=== PATIENT | male | born 1965 | race Caucasian/White ===

== ENCOUNTER 2021-07-27 19:21 | Inpatient (IN) | payer MEDICAID ==
[~2021-07-27] VITALS: Ht 170.2 cm; Wt 49.9 kg
[2021-07-27] MEDS ORDERED: ACETAMINOPHEN 325MG TABLET PO ONE (20:00)
[2021-07-27] MEDS ORDERED: LEVOFLOXACIN 750MG PREMIX 150 ML IV ONE (20:00)
[2021-07-27] MEDS ORDERED: PIPERACILLIN/TAZOBACTAM 3.375GM/50ML PREMIX IV ONE (20:00)
[2021-07-27] MEDS ORDERED: SODIUM CHLORIDE 0.9% 1000ML BAG (SEPSIS BOLUS) IV ONE (20:00)
[2021-07-27] MEDS ORDERED: PIPERACILLIN/TAZ 3.375G PREMIX 50 ML IV NR (20:15)
[2021-07-27 20:36] LABS: BG BASE EXCESS 2.4 mmol/L (-2.0-2.0); BG CARBOXYHEMOGLOBIN 0.4 % (0.5-1.5); BG FRACTION INSPIRED OXYGEN 28; BG HCO3 ACT 23.1 mmol/L (22.0-26.0); BG METHEMOGLOBIN 0.3 % (0.0-1.5); BG OXYHEMOGLOBIN 96.3 % (94.0-97.0); BG PCO2 24.3 mmHg (35.0-45.0); BG PH 7.596 (7.350-7.450); BG PO2 88.4 mmHg (75.0-100.0); BG SAMPLE SITE RIGHT RADIAL; BG TOTAL HEMOGLOBIN 10.6 g/dL (12.0-18.0); BG VENT MODE NASAL CANNULA
[2021-07-27 20:39] LABS: CHLORIDE 101 mEq/L (98-107)
[2021-07-27 20:40] LABS: HEMATOCRIT. 29.3 % (42.0-52.0); MEAN CORPUSCULAR HEMOGLOBIN 37.6 pg (28.0-32.0); MEAN CORPUSCULAR VOLUME 110.1 fL (80.0-94.0); MEAN PLATELET VOLUME 8.5 fl (7.4-10.4); PLATELET 175 x1000/uL (130-400); RED BLOOD CELL COUNT 2.67 mill/uL (4.7-6.1); RED CELL DISTRIBUTION WIDTH 15.2 % (11.6-14.6)
[2021-07-27 20:43] LABS: ETHANOL BLOOD < 10 mg/dL
[2021-07-27 20:51] LABS: PLATELET ESTIMATE NORMAL
[2021-07-27] MEDS ORDERED: ACETAMINOPHEN 650MG SUPP PR ONE (22:45)
[2021-07-27] MEDS ORDERED: LACTULOSE 20G/30ML UDC PO ONE (22:45)
[2021-07-27] MEDS ORDERED: LORAZEPAM 2MG/ML CPJ IV ONE (22:45)
[2021-07-28] VITALS (9 sets, daily range): BP systolic 109–145; BP diastolic 49–94
[2021-07-28] MEDS ORDERED: LACTULOSE 20G/30ML UDC PO SCH (01:15)
[2021-07-28] MEDS ORDERED: POTASSIUM CHLORIDE 20MEQ TABLET SR PO NR (09:00)
[2021-07-28] MEDS ORDERED: ONDANSETRON HCL 4MG/2ML INJ IV PRN (09:00)
[2021-07-28] MEDS ORDERED: ACETAMINOPHEN 325MG TABLET PO PRN (09:00)
[2021-07-28 10:58] LABS: HEMATOCRIT. 24.8 % (42.0-52.0); HEMOGLOBIN. 8.5 g/dL (14.0-18.0); MEAN CORPUSCULAR HEMOGLOBIN 38.7 pg (28.0-32.0); MEAN CORPUSCULAR VOLUME 112.6 fL (80.0-94.0); RED BLOOD CELL COUNT 2.21 mill/uL (4.7-6.1); RED CELL DISTRIBUTION WIDTH 15.2 % (11.6-14.6)
[2021-07-28 11:05] LABS: INR 1.8; PARTIAL THROMBOPLASTIN TIME 43.9 sec (23.4-31.0); PROTHROMBIN TIME 18.1 sec (9.6-11.0)
[2021-07-28 11:09] LABS: CHLORIDE 103 mEq/L (98-107)
[2021-07-28] MEDS ORDERED: SODIUM BICARBONATE 4% (2.4MEQ) 5ML VIAL IV ONE (11:28)
[2021-07-28] MEDS ORDERED: LIDOCAINE HCL/EPINEPHRINE 1%-EPI 1:100,000 30 ML VIAL INFIL ONE (11:28)
[2021-07-28] MEDS ORDERED: LORAZEPAM 2MG/ML CPJ IV PRN (11:30)
[2021-07-28] MEDS ORDERED: LIDOCAINE HCL 1% 10 MG/ML 10ML VIAL ONE (11:31)
[2021-07-28 12:29] LABS: PLATELET ESTIMATE DECREASED
[2021-07-28] MEDS ORDERED: POTASSIUM CHLORIDE 20MEQ/PACKET PO NR ×2 (13:30→17:00)
[2021-07-28] MEDS: PIPERACILLIN/TAZOBACTAM 3.375 G in DEXTROSE 5% WATER 50 ML IV SCH ×3 (13:45→21:59)
[2021-07-28] MEDS: LACTULOSE 20G/30ML UDC PO SCH ×2 (13:45→21:59)
[2021-07-28 15:24] LABS: CLARITY URINE CLEAR (CLEAR); COLOR URINE DARK YELLOW (YELLOW); KETONES URINE NEGATIVE (NEGATIVE); LEUKOCYTE ESTERASE URINE NEGATIVE (NEGATIVE); NITRITE URINE NEGATIVE (NEGATIVE); OCCULT BLOOD URINE NEGATIVE (NEGATIVE); PROTEIN URINE NEGATIVE (NEGATIVE)
[2021-07-28 15:38] LABS: *AMPHETAMINES SCREEN URINE NEGATIVE (NEGATIVE); *BARBITURATES SCREEN URINE NEGATIVE (NEGATIVE); *BENZODIAZEPINES SCREEN URINE NEGATIVE (NEGATIVE)
[2021-07-28 15:39] LABS: *COCAINE SCREEN URINE NEGATIVE (NEGATIVE); CANNABINOID URINE SCREEN NEGATIVE (NEGATIVE); METHADONE URINE SCREEN NEGATIVE (NEGATIVE); OPIATES URINE SCREEN NEGATIVE (NEGATIVE); PHENCYCLIDINE URINE SCREEN NEGATIVE (NEGATIVE)
[2021-07-29] VITALS (12 sets, daily range): BP systolic 111–150; BP diastolic 65–97
[2021-07-29] MEDS: LACTULOSE 20G/30ML UDC PO SCH ×3 (06:25→22:17)
[2021-07-29] MEDS: PIPERACILLIN/TAZOBACTAM 3.375 G in DEXTROSE 5% WATER 50 ML IV SCH ×3 (06:26→22:18)
[2021-07-29 09:42] LABS: HEMATOCRIT. 27.6 % (42.0-52.0); HEMOGLOBIN. 9.2 g/dL (14.0-18.0); MEAN CORPUSCULAR HEMOGLOBIN 37.7 pg (28.0-32.0); MEAN CORPUSCULAR VOLUME 112.6 fL (80.0-94.0); MEAN PLATELET VOLUME 8.1 fl (7.4-10.4); PLATELET 93 x1000/uL (130-400); RED BLOOD CELL COUNT 2.45 mill/uL (4.7-6.1); RED CELL DISTRIBUTION WIDTH 14.9 % (11.6-14.6)
[2021-07-29 09:49] LABS: CHLORIDE 108 mEq/L (98-107)
[2021-07-29] MEDS ORDERED: POTASSIUM CHLORIDE 20MEQ/PACKET PO NR (13:45)
[2021-07-29] MEDS ORDERED: POTASSIUM CHLORIDE INJ 40 MEQ in DEXT 5% WATER 250 ML IV ONE (13:45)
[2021-07-29] MEDS: KCL 20MEQ/100ML X 2 FOR TOTAL KCL 40MEQ/200ML IV SCH ×2 (15:38→18:23)
[2021-07-29 22:13] LABS: PLATELET ESTIMATE DECREASED
[2021-07-30] VITALS (12 sets, daily range): BP systolic 119–153; BP diastolic 77–95
[2021-07-30 06:12] LABS: BASOPHILS % 0.3 % (0.0-2.0); EOSINOPHILS % 0.7 % (0.0-5.0); HEMATOCRIT. 28.4 % (42.0-52.0); HEMOGLOBIN. 9.8 g/dL (14.0-18.0); MEAN CORPUSCULAR HEMOGLOBIN 38.2 pg (28.0-32.0); MEAN CORPUSCULAR VOLUME 110.8 fL (80.0-94.0); MONOCYTES % 14.2 % (2.0-8.0); NEUTROPHILS % 65.8 % (40.0-76.0); RED BLOOD CELL COUNT 2.57 mill/uL (4.7-6.1); RED CELL DISTRIBUTION WIDTH 14.5 % (11.6-14.6)
[2021-07-30 06:20] LABS: CHLORIDE 111 mEq/L (98-107)
[2021-07-30] MEDS: PIPERACILLIN/TAZOBACTAM 3.375 G in DEXTROSE 5% WATER 50 ML IV SCH ×3 (06:39→21:32)
[2021-07-30] MEDS: LACTULOSE 20G/30ML UDC PO SCH ×3 (06:39→21:32)
[2021-07-31] VITALS (10 sets, daily range): BP systolic 139–159; BP diastolic 79–96
[2021-07-31] MEDS: LACTULOSE 20G/30ML UDC PO SCH ×3 (05:31→22:01)
[2021-07-31] MEDS: PIPERACILLIN/TAZOBACTAM 3.375 G in DEXTROSE 5% WATER 50 ML IV SCH ×3 (05:31→22:02)
[2021-07-31] MEDS ORDERED: SPIRONOLACTONE 25MG TABLET PO NR (09:30)
[2021-07-31] MEDS: FUROSEMIDE 40MG/4ML VIAL IVP SCH (10:06)
[2021-07-31] MEDS: CHLORDIAZEPOXIDE 25MG CAPSULE PO SCH ×2 (14:15→22:01)
[2021-08-01] VITALS (10 sets, daily range): BP systolic 117–151; BP diastolic 74–100
[2021-08-01] MEDS: PIPERACILLIN/TAZOBACTAM 3.375 G in DEXTROSE 5% WATER 50 ML IV SCH ×3 (05:02→22:28)
[2021-08-01] MEDS: LACTULOSE 20G/30ML UDC PO SCH ×3 (05:53→22:29)
[2021-08-01] MEDS: CHLORDIAZEPOXIDE 25MG CAPSULE PO SCH ×3 (05:53→22:29)
[2021-08-01 08:11] LABS: CHLORIDE 107 mEq/L (98-107); INR 1.5; PROTHROMBIN TIME 15.8 sec (9.6-11.0)
[2021-08-01 08:13] LABS: HEMATOCRIT. 28.3 % (42.0-52.0); HEMOGLOBIN. 9.6 g/dL (14.0-18.0); MEAN CORPUSCULAR HEMOGLOBIN 38.3 pg (28.0-32.0); MEAN CORPUSCULAR VOLUME 113.4 fL (80.0-94.0); RED BLOOD CELL COUNT 2.49 mill/uL (4.7-6.1); RED CELL DISTRIBUTION WIDTH 14.7 % (11.6-14.6)
[2021-08-01] MEDS: FUROSEMIDE 40MG/4ML VIAL IVP SCH (08:24)
[2021-08-01] MEDS: SPIRONOLACTONE 50MG TABLET PO SCH (09:00)
[2021-08-01 11:00] LABS: PLATELET ESTIMATE DECREASED
[2021-08-01] MEDS ORDERED: SIMETHICONE/SOD BICARB/CIT AC 1 EACH GRAN.EF.PK ONE (12:43)
[2021-08-01] MEDS ORDERED: SODIUM BICARBONATE 4% (2.4MEQ) 5ML VIAL IV ONE (12:44)
[2021-08-01] MEDS ORDERED: LIDOCAINE HCL 1% 10 MG/ML 10ML VIAL ONE (12:44)
[2021-08-01] MEDS: POTASSIUM CHLORIDE 20MEQ TABLET SR PO SCH (14:04)
[2021-08-02] VITALS: BP 127/82
[2021-08-02 04:00] VITALS: BP 118/71
[2021-08-02] MEDS: CHLORDIAZEPOXIDE 25MG CAPSULE PO SCH ×3 (05:28→22:34)
[2021-08-02] MEDS: LACTULOSE 20G/30ML UDC PO SCH ×3 (05:28→22:34)
[2021-08-02] MEDS: PIPERACILLIN/TAZOBACTAM 3.375 G in DEXTROSE 5% WATER 50 ML IV SCH (05:28)
[2021-08-02 07:56] VITALS: BP 118/99
[2021-08-02] MEDS: FUROSEMIDE 40MG/4ML VIAL IVP SCH (08:05)
[2021-08-02] MEDS: SPIRONOLACTONE 50MG TABLET PO SCH (08:06)
[2021-08-02] MEDS: POTASSIUM CHLORIDE 20MEQ TABLET SR PO SCH (08:06)
[2021-08-02 12:00] VITALS: BP 117/72
[2021-08-02 16:00] VITALS: BP 116/76
[2021-08-02 20:00] VITALS: BP 130/84
[2021-08-03] VITALS: BP 119/73
[2021-08-03 04:00] VITALS: BP 120/70
[2021-08-03] MEDS: CHLORDIAZEPOXIDE 25MG CAPSULE PO SCH ×3 (05:53→22:12)
[2021-08-03] MEDS: LACTULOSE 20G/30ML UDC PO SCH ×3 (05:53→22:12)
[2021-08-03 08:00] VITALS: BP 127/77
[2021-08-03] MEDS: POTASSIUM CHLORIDE 20MEQ TABLET SR PO SCH (08:59)
[2021-08-03] MEDS: FUROSEMIDE 40MG/4ML VIAL IVP SCH (08:59)
[2021-08-03] MEDS: SPIRONOLACTONE 50MG TABLET PO SCH (08:59)
[2021-08-03 12:00] VITALS: BP 120/67
[2021-08-03 16:00] VITALS: BP 116/71
[2021-08-03 20:00] VITALS: BP 132/73
[2021-08-04] VITALS: BP 117/73
[2021-08-04 04:00] VITALS: BP 128/73
[2021-08-04] MEDS: LACTULOSE 20G/30ML UDC PO SCH ×3 (06:17→22:00)
[2021-08-04] MEDS: CHLORDIAZEPOXIDE 25MG CAPSULE PO SCH ×3 (06:17→22:00)
[2021-08-04 08:00] VITALS: BP 114/71
[2021-08-04] MEDS: FUROSEMIDE 40MG/4ML VIAL IVP SCH (08:46)
[2021-08-04] MEDS: POTASSIUM CHLORIDE 20MEQ TABLET SR PO SCH (08:47)
[2021-08-04] MEDS: SPIRONOLACTONE 50MG TABLET PO SCH (08:47)
[2021-08-04 12:00] VITALS: BP 115/66
[2021-08-04 16:00] VITALS: BP 129/76
[2021-08-04 20:00] VITALS: BP 112/78
[2021-08-05] VITALS: BP 123/78
[2021-08-05 04:00] VITALS: BP 125/82
[2021-08-05] MEDS: LACTULOSE 20G/30ML UDC PO SCH ×3 (06:06→22:35)
[2021-08-05] MEDS: CHLORDIAZEPOXIDE 25MG CAPSULE PO SCH ×2 (06:06→14:10)
[2021-08-05 08:00] VITALS: BP 118/79
[2021-08-05] MEDS: FUROSEMIDE 40MG/4ML VIAL IVP SCH (08:58)
[2021-08-05] MEDS: SPIRONOLACTONE 50MG TABLET PO SCH (08:58)
[2021-08-05] MEDS: POTASSIUM CHLORIDE 20MEQ TABLET SR PO SCH (08:58)
[2021-08-05 12:00] VITALS: BP 103/62
[2021-08-05 16:00] VITALS: BP 115/68
[2021-08-05 20:00] VITALS: BP 127/78
[2021-08-06] VITALS: BP 133/69
[2021-08-06 04:00] VITALS: BP 127/62
[2021-08-06] MEDS: LACTULOSE 20G/30ML UDC PO SCH ×3 (07:13→22:21)
[2021-08-06 08:00] VITALS: BP 119/72
[2021-08-06] MEDS: POTASSIUM CHLORIDE 20MEQ TABLET SR PO SCH (09:03)
[2021-08-06] MEDS: SPIRONOLACTONE 50MG TABLET PO SCH (09:04)
[2021-08-06] MEDS: FUROSEMIDE 40MG/4ML VIAL IVP SCH (09:04)
[2021-08-06 12:00] VITALS: BP 113/73
[2021-08-06] MEDS: FUROSEMIDE 40MG TABLET PO SCH (12:37)
[2021-08-06 16:04] VITALS: BP 97/60
[2021-08-06 20:00] VITALS: BP 95/55
[2021-08-06] MEDS: PANTOPRAZOLE SODIUM 40 MG/VIAL IV SCH (22:21)
[2021-08-07] VITALS: BP 101/70
[2021-08-07 04:00] VITALS: BP 123/72
[2021-08-07] MEDS: LACTULOSE 20G/30ML UDC PO SCH ×2 (06:00→13:33)
[2021-08-07 08:00] VITALS: BP 100/59
[2021-08-07] MEDS: PANTOPRAZOLE SODIUM 40 MG/VIAL IV SCH ×2 (09:34→21:00)
[2021-08-07] MEDS: SPIRONOLACTONE 50MG TABLET PO SCH (09:41)
[2021-08-07] MEDS: POTASSIUM CHLORIDE 20MEQ TABLET SR PO SCH (09:42)
[2021-08-07] MEDS: FUROSEMIDE 40MG TABLET PO SCH (09:42)
[2021-08-07 11:50] LABS: HEMATOCRIT. 26.1 % (42.0-52.0); HEMOGLOBIN. 8.5 g/dL (14.0-18.0); MEAN CORPUSCULAR HEMOGLOBIN 39.2 pg (28.0-32.0); MEAN CORPUSCULAR VOLUME 120.6 fL (80.0-94.0); MEAN PLATELET VOLUME 9.1 fl (7.4-10.4); PLATELET 80 x1000/uL (130-400); RED BLOOD CELL COUNT 2.16 mill/uL (4.7-6.1); RED CELL DISTRIBUTION WIDTH 17.4 % (11.6-14.6)
[2021-08-07] MEDS ORDERED: BARIUM SULFATE 176 GM SUSP.RECON ONE (11:51)
[2021-08-07] MEDS ORDERED: BARIUM SULFATE(VOLUMEN) 450 ML ORAL.SUSP ONE (11:52)
[2021-08-07 11:55] LABS: INR 1.7; PROTHROMBIN TIME 17.1 sec (9.6-11.0)
[2021-08-07 12:00] VITALS: BP 90/52
[2021-08-07] MEDS ORDERED: SODIUM CHLORIDE 0.9% 1,000 ML IV SCH (12:30)
[2021-08-07 12:34] LABS: VITAMIN B12 SERUM > 2000.0 pg/mL (211-911)
[2021-08-07 12:47] LABS: FERRITIN 1411 ng/mL (22-322)
[2021-08-07 16:00] VITALS: BP 90/58
[2021-08-07 19:50] LABS: PLATELET ESTIMATE DECREASED
[2021-08-07 20:00] VITALS: BP 92/53
[2021-08-08] VITALS: BP 99/62
[2021-08-08 04:00] VITALS: BP 107/64
[2021-08-08] MEDS: PANTOPRAZOLE SODIUM 40 MG/VIAL IV SCH (09:00)
[2021-08-08] MEDS: LACTULOSE 20G/30ML UDC PO SCH (09:00)
[2021-08-08] MEDS: SPIRONOLACTONE 50MG TABLET PO SCH (09:00)
[2021-08-08] MEDS: POTASSIUM CHLORIDE 20MEQ TABLET SR PO SCH (09:00)
[2021-08-08 12:00] VITALS: BP 117/66
[2021-08-08] MEDS: DEXTROSE 5% WATER 1,000 ML IV SCH (15:30)
[2021-08-08 20:00] VITALS: BP 111/54
[2021-08-09] VITALS: BP 119/61
[2021-08-09 04:00] VITALS: BP 95/51
[2021-08-09 08:00] VITALS: BP 87/52
[2021-08-09] MEDS: POTASSIUM CHLORIDE 20MEQ TABLET SR PO SCH (09:00)
[2021-08-09] MEDS: SPIRONOLACTONE 50MG TABLET PO SCH (09:00)
[2021-08-09] MEDS: LACTULOSE 20G/30ML UDC PO SCH (09:00)
[2021-08-09 10:28] LABS: INR 1.8; PROTHROMBIN TIME 18.2 sec (9.6-11.0)
[2021-08-09] MEDS: DEXTROSE 5% WATER 1,000 ML IV SCH (11:30)
[2021-08-09] MEDS: PANTOPRAZOLE SODIUM 40 MG/VIAL IV SCH (11:31)
[2021-08-09 12:00] VITALS: BP 91/52
[2021-08-09 13:13] LABS: BASOPHILS % 0.1 % (0.0-2.0); HEMATOCRIT. 25.9 % (42.0-52.0); HEMOGLOBIN. 8.3 g/dL (14.0-18.0); LYMPHOCYTES % 7.7 % (20.0-50.0); MEAN CORPUSCULAR HEMOGLOBIN 38.3 pg (28.0-32.0); MEAN CORPUSCULAR VOLUME 119.4 fL (80.0-94.0); MEAN PLATELET VOLUME 9.6 fl (7.4-10.4); MONOCYTES % 4.4 % (2.0-8.0); NEUTROPHILS % 87.8 % (40.0-76.0); PLATELET 51 x1000/uL (130-400); RED BLOOD CELL COUNT 2.17 mill/uL (4.7-6.1); RED CELL DISTRIBUTION WIDTH 18.5 % (11.6-14.6)
[2021-08-09 16:00] VITALS: BP 88/52
[2021-08-09] MEDS: RISPERIDONE 0.5MG TABLET PO SCH (19:04)
[2021-08-09 20:00] VITALS: BP 100/62
[2021-08-09] MEDS: RIFAXIMIN 550 MG TABLET PO SCH (22:58)
[2021-08-10] VITALS (11 sets, daily range): BP systolic 93–130; BP diastolic 57–70
[2021-08-10] MEDS: DEXTROSE 5% WATER 1,000 ML IV SCH ×3 (01:43→20:33)
[2021-08-10] MEDS: SPIRONOLACTONE 50MG TABLET PO SCH (09:00)
[2021-08-10 09:14] LABS: BASOPHILS % 0.3 % (0.0-2.0); EOSINOPHILS % 0.9 % (0.0-5.0); HEMATOCRIT. 27.1 % (42.0-52.0); LYMPHOCYTES % 8.5 % (20.0-50.0); MEAN CORPUSCULAR HEMOGLOBIN 38.6 pg (28.0-32.0); MEAN CORPUSCULAR VOLUME 116.3 fL (80.0-94.0); MEAN PLATELET VOLUME 9.1 fl (7.4-10.4); MONOCYTES % 5.2 % (2.0-8.0); NEUTROPHILS % 85.1 % (40.0-76.0); RED BLOOD CELL COUNT 2.33 mill/uL (4.7-6.1); RED CELL DISTRIBUTION WIDTH 18.4 % (11.6-14.6)
[2021-08-10 11:17] LABS: INR 1.7; PROTHROMBIN TIME 17.7 sec (9.6-11.0)
[2021-08-10] MEDS ORDERED: PHYTONADIONE 10MG/ML AMP SUBCUT NR (11:30)
[2021-08-10] MEDS: PANTOPRAZOLE SODIUM 40 MG/VIAL IV SCH ×3 (12:17→20:32)
[2021-08-10] MEDS: LACTULOSE 20G/30ML UDC PO SCH (12:17)
[2021-08-10] MEDS: RIFAXIMIN 550 MG TABLET PO SCH ×2 (12:18→20:32)
[2021-08-10] MEDS: RISPERIDONE 0.5MG TABLET PO SCH (12:18)
[2021-08-10] MEDS ORDERED: LORAZEPAM 2MG/ML CPJ IV PRN (17:00)
[2021-08-11] VITALS (8 sets, daily range): BP systolic 83–110; BP diastolic 53–66
[2021-08-11 03:05] LABS: HEMATOCRIT. 26.3 % (42.0-52.0); HEMOGLOBIN. 8.7 g/dL (14.0-18.0); MEAN CORPUSCULAR HEMOGLOBIN 38.7 pg (28.0-32.0); MEAN CORPUSCULAR VOLUME 117.1 fL (80.0-94.0); RED BLOOD CELL COUNT 2.24 mill/uL (4.7-6.1); RED CELL DISTRIBUTION WIDTH 18.1 % (11.6-14.6)
[2021-08-11 03:14] LABS: INR 1.7; PROTHROMBIN TIME 17.5 sec (9.6-11.0)
[2021-08-11 06:41] LABS: HEMATOCRIT. 27.4 % (42.0-52.0); HEMOGLOBIN. 8.9 g/dL (14.0-18.0); MEAN CORPUSCULAR HEMOGLOBIN 38.5 pg (28.0-32.0); MEAN CORPUSCULAR VOLUME 118.2 fL (80.0-94.0); MEAN PLATELET VOLUME 9.4 fl (7.4-10.4); PLATELET 53 x1000/uL (130-400); RED BLOOD CELL COUNT 2.31 mill/uL (4.7-6.1); RED CELL DISTRIBUTION WIDTH 18.2 % (11.6-14.6)
[2021-08-11 06:47] LABS: INR 1.7; PROTHROMBIN TIME 17.9 sec (9.6-11.0)
[2021-08-11 08:28] LABS: NUCLEATED RED BLOOD CELLS 2 /100 WBC
[2021-08-11 08:29] LABS: PLATELET ESTIMATE DECREASED
[2021-08-11 08:32] LABS: PLATELET 52 x1000/uL (130-400)
[2021-08-11] MEDS ORDERED: KCL 20MEQ/100ML PREMIX 100 ML IV NR (11:30)
[2021-08-11] MEDS ORDERED: SODIUM BICARBONATE 4% (2.4MEQ) 5ML VIAL IV ONE (11:32)
[2021-08-11] MEDS: RIFAXIMIN 550 MG TABLET PO SCH ×2 (11:32→20:45)
[2021-08-11] MEDS ORDERED: LIDOCAINE HCL 1% 10 MG/ML 10ML VIAL ONE (11:32)
[2021-08-11] MEDS: PHYTONADIONE 10MG/ML AMP SUBCUT SCH (11:32)
[2021-08-11] MEDS: RISPERIDONE 0.5MG TABLET PO SCH (11:32)
[2021-08-11] MEDS: PANTOPRAZOLE SODIUM 40 MG/VIAL IV SCH ×2 (11:32→20:45)
[2021-08-11] MEDS: SPIRONOLACTONE 50MG TABLET PO SCH (11:32)
[2021-08-11] MEDS: LACTULOSE 20G/30ML UDC PO SCH (11:34)
[2021-08-11] MEDS: DEXTROSE 5% WATER 1,000 ML IV SCH ×2 (11:57→16:34)
[2021-08-11 13:24] LABS: PLATELET ESTIMATE MARKEDLY DECREASED
[2021-08-11 14:16] LABS: PLATELET ESTIMATE MARKEDLY DECREASED
[2021-08-11 14:17] LABS: PLATELET 42 x1000/uL (130-400)
[2021-08-11] MEDS ORDERED: VANCOMYCIN 1GM PMX (XELLIA) 200 ML IV NR (23:59)
[2021-08-12] VITALS (85 sets, daily range): BP systolic 73–140; BP diastolic 44–86
[2021-08-12] MEDS: PIPERACILLIN/TAZOBACTAM 3.375 G in DEXTROSE 5% WATER 50 ML IV SCH ×4 (00:25→21:12)
[2021-08-12] MEDS: DEXTROSE 5% WATER 1,000 ML IV SCH ×2 (02:29→14:24)
[2021-08-12] MEDS: NOREPINEPHRINE 32 MG in DEXT 5% WATER 218 ML IV PRN (03:58)
[2021-08-12 04:45] LABS: BASOPHILS % 0.2 % (0.0-2.0); EOSINOPHILS % 0.7 % (0.0-5.0); HEMATOCRIT. 22.9 % (42.0-52.0); HEMOGLOBIN. 7.6 g/dL (14.0-18.0); LYMPHOCYTES % 9.7 % (20.0-50.0); MEAN CORPUSCULAR HEMOGLOBIN 39.1 pg (28.0-32.0); MEAN CORPUSCULAR VOLUME 117.6 fL (80.0-94.0); MEAN PLATELET VOLUME 10.1 fl (7.4-10.4); MONOCYTES % 3.6 % (2.0-8.0); NEUTROPHILS % 85.8 % (40.0-76.0); RED BLOOD CELL COUNT 1.95 mill/uL (4.7-6.1); RED CELL DISTRIBUTION WIDTH 17.9 % (11.6-14.6)
[2021-08-12 04:55] LABS: PLATELET 33 x1000/uL (130-400)
[2021-08-12] MEDS ORDERED: LIDOCAINE HCL 1% 20ML VIAL (Pyxis) INJ ONE (09:14)
[2021-08-12] MEDS: LACTULOSE 20G/30ML UDC PO SCH (10:00)
[2021-08-12] MEDS: RIFAXIMIN 550 MG TABLET PO SCH ×2 (10:00→21:12)
[2021-08-12] MEDS: RISPERIDONE 0.5MG TABLET PO SCH (10:01)
[2021-08-12] MEDS: PANTOPRAZOLE SODIUM 40 MG/VIAL IV SCH ×2 (10:01→21:12)
[2021-08-12] MEDS: SPIRONOLACTONE 50MG TABLET PO SCH (10:36)
[2021-08-12] MEDS: PHYTONADIONE 10MG/ML AMP SUBCUT SCH (10:36)
[2021-08-12 21:10] LABS: BG BASE EXCESS -4.4 mmol/L (-2.0-2.0); BG CARBOXYHEMOGLOBIN 0.3 % (0.5-1.5); BG DEOXYHEMOGLOBIN 10.3 % (0.0-5.0); BG FRACTION INSPIRED OXYGEN 21; BG HCO3 ACT 19.7 mmol/L (22.0-26.0); BG METHEMOGLOBIN 0.2 % (0.0-1.5); BG OXYGEN SATURATION 89.6 % (92.0-98.5); BG OXYHEMOGLOBIN 89.2 % (94.0-97.0); BG PCO2 32.7 mmHg (35.0-45.0); BG PH 7.397 (7.350-7.450); BG PO2 63.8 mmHg (75.0-100.0); BG SAMPLE SITE RIGHT BRACHIAL; BG TOTAL HEMOGLOBIN 11.4 g/dL (12.0-18.0); BG VENT MODE VENT - AC
[2021-08-12] MEDS ORDERED: VANCOMYCIN 500MG PREMIX 100 ML IV SCH (23:30)
[2021-08-13] VITALS (93 sets, daily range): BP systolic 73–136; BP diastolic 41–67
[2021-08-13] MEDS: DEXTROSE 5% WATER 1,000 ML IV SCH ×2 (00:41→07:30)
[2021-08-13 06:02] LABS: BASOPHILS % 0.2 % (0.0-2.0); HEMATOCRIT. 27.7 % (42.0-52.0); HEMOGLOBIN. 9.4 g/dL (14.0-18.0); LYMPHOCYTES % 8.4 % (20.0-50.0); MEAN CORPUSCULAR HEMOGLOBIN 38.8 pg (28.0-32.0); MEAN PLATELET VOLUME 9.9 fl (7.4-10.4); NEUTROPHILS % 85.4 % (40.0-76.0); RED BLOOD CELL COUNT 2.41 mill/uL (4.7-6.1); RED CELL DISTRIBUTION WIDTH 17.7 % (11.6-14.6)
[2021-08-13] MEDS: PIPERACILLIN/TAZOBACTAM 3.375 G in DEXTROSE 5% WATER 50 ML IV SCH ×3 (06:25→21:23)
[2021-08-13 06:38] LABS: PHOSPHORUS 5.1 mg/dL (2.5-4.9)
[2021-08-13] MEDS: NOREPINEPHRINE 32 MG in DEXT 5% WATER 218 ML IV PRN ×2 (06:52→09:06)
[2021-08-13 07:15] LABS: PLATELET 29 x1000/uL (130-400)
[2021-08-13] MEDS: SPIRONOLACTONE 50MG TABLET PO SCH (08:36)
[2021-08-13] MEDS: RIFAXIMIN 550 MG TABLET PO SCH ×2 (08:36→21:22)
[2021-08-13] MEDS: RISPERIDONE 0.5MG TABLET PO SCH (08:36)
[2021-08-13] MEDS: LACTULOSE 20G/30ML UDC PO SCH (08:36)
[2021-08-13] MEDS: MIDODRINE HCL 5MG TABLET PO SCH ×3 (08:36→17:22)
[2021-08-13] MEDS: PHYTONADIONE 10MG/ML AMP SUBCUT SCH (08:36)
[2021-08-13] MEDS: PANTOPRAZOLE SODIUM 40 MG/VIAL IV SCH ×2 (08:36→21:23)
[2021-08-13] MEDS: SODIUM CHLORIDE 0.45% 1,000 ML IV SCH ×2 (08:42→21:23)
[2021-08-13] MEDS ORDERED: VANCOMYCIN 500MG PREMIX 100 ML IV SCH (11:00)
[2021-08-13] MEDS ORDERED: VANCOMYCIN 500 MG in DEXT 5% WATER 100 ML IV SCH (11:00)
[2021-08-13 12:11] LABS: BG BASE EXCESS -4.6 mmol/L (-2.0-2.0); BG CARBOXYHEMOGLOBIN 0.3 % (0.5-1.5); BG DEOXYHEMOGLOBIN 8.4 % (0.0-5.0); BG FRACTION INSPIRED OXYGEN 40; BG HCO3 ACT 18.7 mmol/L (22.0-26.0); BG METHEMOGLOBIN 0.2 % (0.0-1.5); BG OXYGEN SATURATION 91.6 % (92.0-98.5); BG OXYHEMOGLOBIN 91.1 % (94.0-97.0); BG PCO2 27.9 mmHg (35.0-45.0); BG PH 7.443 (7.350-7.450); BG PO2 64.5 mmHg (75.0-100.0); BG SAMPLE SITE RIGHT RADIAL; BG TOTAL HEMOGLOBIN 8.9 g/dL (12.0-18.0); BG VENT MODE NASAL CANNULA
[2021-08-14] VITALS (90 sets, daily range): BP systolic 74–147; BP diastolic 40–72
[2021-08-14] MEDS: NOREPINEPHRINE 32 MG in DEXT 5% WATER 218 ML IV PRN ×2 (00:42→15:36)
[2021-08-14] MEDS: PIPERACILLIN/TAZOBACTAM 3.375 G in DEXTROSE 5% WATER 50 ML IV SCH ×3 (06:16→21:24)
[2021-08-14 06:24] LABS: HEMATOCRIT. 28.3 % (42.0-52.0); HEMOGLOBIN. 9.4 g/dL (14.0-18.0); MEAN CORPUSCULAR HEMOGLOBIN 38.4 pg (28.0-32.0); MEAN CORPUSCULAR VOLUME 115.3 fL (80.0-94.0); MEAN PLATELET VOLUME 11.3 fl (7.4-10.4); RED BLOOD CELL COUNT 2.45 mill/uL (4.7-6.1); RED CELL DISTRIBUTION WIDTH 17.5 % (11.6-14.6)
[2021-08-14 06:41] LABS: PLATELET 34 x1000/uL (130-400)
[2021-08-14 07:03] LABS: PHOSPHORUS 6.5 mg/dL (2.5-4.9)
[2021-08-14 07:27] LABS: NUCLEATED RED BLOOD CELLS 3 /100 WBC
[2021-08-14] MEDS ORDERED: SODIUM BICARBONATE 8.4% 1 MEQ/ML 50ML SYR IV NR (07:30)
[2021-08-14] MEDS: SODIUM BICARBONATE 100 MEQ in DEXTROSE 5% WATER 1,000 ML IV SCH ×2 (08:44→22:40)
[2021-08-14] MEDS: LACTULOSE 20G/30ML UDC PO SCH (08:52)
[2021-08-14] MEDS: SPIRONOLACTONE 50MG TABLET PO SCH (08:52)
[2021-08-14] MEDS: MIDODRINE HCL 5MG TABLET PO SCH ×3 (08:52→18:43)
[2021-08-14] MEDS: RIFAXIMIN 550 MG TABLET PO SCH ×2 (08:53→21:24)
[2021-08-14] MEDS: RISPERIDONE 0.5MG TABLET PO SCH (08:53)
[2021-08-14] MEDS: PANTOPRAZOLE SODIUM 40 MG/VIAL IV SCH ×2 (08:53→21:23)
[2021-08-14] MEDS ORDERED: MORPHINE SULFATE 2 MG/ML CPJ (NOT FOR IM USE) IV PRN (09:45)
[2021-08-14] MEDS: VASOPRESSIN 20 UNIT in SODIUM CHLORIDE 0.9% 99 ML IV PRN ×2 (09:51→16:02)
[2021-08-14] MEDS ORDERED: NALOXONE HCL 0.4MG/ML VIAL IV PRN (10:00)
[2021-08-15] VITALS (56 sets, daily range): BP systolic 92–151; BP diastolic 37–74
[2021-08-15] MEDS: NOREPINEPHRINE 32 MG in DEXT 5% WATER 218 ML IV PRN (00:06)
[2021-08-15] MEDS: VASOPRESSIN 20 UNIT in SODIUM CHLORIDE 0.9% 99 ML IV PRN ×3 (00:06→18:47)
[2021-08-15 05:20] LABS: HEMOGLOBIN. 9.2 g/dL (14.0-18.0); MEAN CORPUSCULAR HEMOGLOBIN 38.8 pg (28.0-32.0); RED BLOOD CELL COUNT 2.37 mill/uL (4.7-6.1); RED CELL DISTRIBUTION WIDTH 17.4 % (11.6-14.6)
[2021-08-15 05:35] LABS: CHLORIDE 99 mEq/L (98-107)
[2021-08-15 05:42] LABS: PHOSPHORUS 7.6 mg/dL (2.5-4.9)
[2021-08-15] MEDS: PIPERACILLIN/TAZOBACTAM 3.375 G in DEXTROSE 5% WATER 50 ML IV SCH (06:24)
[2021-08-15 07:09] LABS: NUCLEATED RED BLOOD CELLS 14 /100 WBC
[2021-08-15 07:16] LABS: PLATELET ESTIMATE MARKEDLY DECREASED
[2021-08-15 07:20] LABS: MEAN PLATELET VOLUME 9.4 fl (7.4-10.4); PLATELET 18 x1000/uL (130-400)
[2021-08-15] MEDS: LACTULOSE 20G/30ML UDC PO SCH (09:41)
[2021-08-15] MEDS: SPIRONOLACTONE 50MG TABLET PO SCH (09:41)
[2021-08-15] MEDS: MIDODRINE HCL 5MG TABLET PO SCH ×3 (09:41→17:35)
[2021-08-15] MEDS: PANTOPRAZOLE SODIUM 40 MG/VIAL IV SCH ×2 (09:41→21:08)
[2021-08-15] MEDS: SODIUM BICARBONATE 100 MEQ in DEXTROSE 5% WATER 1,000 ML IV SCH ×2 (12:50→21:08)
[2021-08-15] MEDS ORDERED: VANCOMYCIN 500MG PREMIX 100 ML IV SCH (14:00)
[2021-08-16] VITALS (79 sets, daily range): BP systolic 67–127; BP diastolic 28–100
[2021-08-16] MEDS: NOREPINEPHRINE 32 MG in DEXT 5% WATER 218 ML IV PRN (01:23)
[2021-08-16] MEDS ORDERED: PHENYLEPHRINE 100 MG in DEXT 5% WATER 240 ML IV PRN (09:00)
[2021-08-16] MEDS: PANTOPRAZOLE SODIUM 40 MG/VIAL IV SCH (09:45)
[2021-08-16] MEDS: LACTULOSE 20G/30ML UDC PO SCH (09:45)
[2021-08-16] MEDS: MIDODRINE HCL 5MG TABLET PO SCH ×3 (09:45→17:09)
[2021-08-16] MEDS: SPIRONOLACTONE 50MG TABLET PO SCH (10:57)
[2021-08-16] MEDS ORDERED: IPRATROPIUM/ALBUTEROL 0.5-3(2.5)MG/3ML NEB HHN PRN (11:00)
[2021-08-16] MEDS: VASOPRESSIN 20 UNIT in SODIUM CHLORIDE 0.9% 99 ML IV PRN ×2 (12:00→18:52)
[2021-08-16 12:21] LABS: BG BASE EXCESS -12.7 mmol/L (-2.0-2.0); BG CARBOXYHEMOGLOBIN 0.3 % (0.5-1.5); BG DEOXYHEMOGLOBIN 12.3 % (0.0-5.0); BG FRACTION INSPIRED OXYGEN 100; BG HCO3 ACT 13.4 mmol/L (22.0-26.0); BG METHEMOGLOBIN 0.3 % (0.0-1.5); BG OXYGEN SATURATION 87.6 % (92.0-98.5); BG OXYHEMOGLOBIN 87.1 % (94.0-97.0); BG PCO2 31.5 mmHg (35.0-45.0); BG PH 7.247 (7.350-7.450); BG PO2 69.1 mmHg (75.0-100.0); BG SAMPLE SITE LEFT BRACHIAL; BG TOTAL HEMOGLOBIN 8.8 g/dL (12.0-18.0); BG VENT MODE MASK - NRB
[2021-08-16] MEDS ORDERED: SODIUM BICARBONATE 8.4% 1 MEQ/ML 50ML SYR IV NR (12:39)
[2021-08-16] MEDS ORDERED: LORAZEPAM 2MG/ML CPJ IV PRN (13:15)
[2021-08-16] MEDS: SODIUM BICARBONATE 100 MEQ in DEXTROSE 5% WATER 1,000 ML IV SCH (13:48)
== END 2021-08-16 21:01 | DRG 720 ==
LOC: ER 19:21 → EDBD 19:27 → MICUSO 19:27 → 3WST 07-28 06:17 → 6EST 08-02 14:53 → CVICU 08-11 23:42
PROVIDERS: ADMIT Internal Medicine; ATTEND Internal Medicine
PROC: 0W9G3ZZ Drainage of Peritoneal Cavity, Percutaneous Approach (ICD-10-PCS; 2021-07-28)
PROC: 0W9G3ZZ Drainage of Peritoneal Cavity, Percutaneous Approach (ICD-10-PCS; 2021-08-01)
PROC: 02HV33Z Insertion of Infusion Device into Superior Vena Cava, Percutaneous Approach (ICD-10-PCS; 2021-08-08)
PROC: B548ZZA Ultrasonography of Superior Vena Cava, Guidance (ICD-10-PCS; 2021-08-08)
PROC: B5181ZA Fluoroscopy of Superior Vena Cava using Low Osmolar Contrast, Guidance (ICD-10-PCS; 2021-08-08)
PROC: 0HBRXZZ Excision of Toe Nail, External Approach (ICD-10-PCS; principal; 2021-08-09)
PROC: 0HBRXZZ Excision of Toe Nail, External Approach (ICD-10-PCS; 2021-08-09)
PROC: 0HBRXZZ Excision of Toe Nail, External Approach (ICD-10-PCS; 2021-08-09)
PROC: 0HBRXZZ Excision of Toe Nail, External Approach (ICD-10-PCS; 2021-08-09)
PROC: 0HBRXZZ Excision of Toe Nail, External Approach (ICD-10-PCS; 2021-08-09)
PROC: 0HBRXZZ Excision of Toe Nail, External Approach (ICD-10-PCS; 2021-08-09)
PROC: 0HBRXZZ Excision of Toe Nail, External Approach (ICD-10-PCS; 2021-08-09)
PROC: 0HBRXZZ Excision of Toe Nail, External Approach (ICD-10-PCS; 2021-08-09)
PROC: 0HBRXZZ Excision of Toe Nail, External Approach (ICD-10-PCS; 2021-08-09)
PROC: 0HBRXZZ Excision of Toe Nail, External Approach (ICD-10-PCS; 2021-08-09)
PROC: 30233R1 Transfusion of Nonautologous Platelets into Peripheral Vein, Percutaneous Approach (ICD-10-PCS; 2021-08-10)
PROC: 02HV33Z Insertion of Infusion Device into Superior Vena Cava, Percutaneous Approach (ICD-10-PCS; 2021-08-12)
PROC: B548ZZA Ultrasonography of Superior Vena Cava, Guidance (ICD-10-PCS; 2021-08-12)
DX: A41.9 Sepsis, unspecified organism (principal); K72.00 Acute and subacute hepatic failure without coma; N17.0 Acute kidney failure with tubular necrosis; J96.01 Acute respiratory failure with hypoxia; R65.21 Severe sepsis with septic shock; D68.9 Coagulation defect, unspecified; E43 Unspecified severe protein-calorie malnutrition; E87.2 Acidosis; J18.9 Pneumonia, unspecified organism; Z66 Do not resuscitate; R18.8 Other ascites; K74.60 Unspecified cirrhosis of liver; E87.6 Hypokalemia; E87.0 Hyperosmolality and hypernatremia; B35.1 Tinea unguium; D53.9 Nutritional anemia, unspecified; D69.6 Thrombocytopenia, unspecified; E87.5 Hyperkalemia; L60.2 Onychogryphosis; R13.10 Dysphagia, unspecified; R62.7 Adult failure to thrive; Z20.822 Contact with and (suspected) exposure to COVID-19; G92.8 Other toxic encephalopathy; L89.156 Pressure-induced deep tissue damage of sacral region; Z68.1 Body mass index [BMI] 19.9 or less, adult
CPT/HCPCS: 36415; 36573; 36600; 49083; 71045; 74176; 74220; 76705; 76937; 80048; 80053; 80076; 80202; 80305; 80320; 81003; 82140; 82248; 82375; 82607; 82728; 82746; 82805; 82962; 83540; 83550; 83605; 83735; 84100; 84134; 84145; 84484; 85025; 85044; 86850; 86900; 86945; 87426; 93005; 97110; 97162; 97530; 99291; A6261; C1725; C1893; C9113; J1940; J1956; J2060; J2270; J2370; J2543; J3370; J3430; J3480; J3490; J7030; J7050; J7060; J7070; J7517; P9034; A4315; G0480